=== PATIENT | female | born 1965 | race Caucasian/White ===

== ENCOUNTER 2019-05-16 09:51 | Day surgery (SDC) | payer MEDICAID ==
[2019-05-06 11:52] LABS: BASOPHILS # (AUTO) 0.1 X10'3 (0-0.2); BASOPHILS % (AUTO) 0.9 % (0-1); EOSINOPHILS # (AUTO) 0.2 X10'3 (0-0.9); LYMPHOCYTES # (AUTO) 1.8 X10'3 (1.1-4.8); LYMPHOCYTES % (AUTO) 24.7 % (21-51); MEAN CORPUSCULAR HEMOGLOBIN 28.7 PG (27.0-31.0); MEAN CORPUSCULAR HGB CONC 34.4 g/dL (33.0-36.5); MEAN CORPUSCULAR VOLUME 83.5 FL (78-98); MEAN PLATELET VOLUME 8.4 FL (7.4-10.4); MONOCYTES # (AUTO) 0.7 X10'3 (0-0.9); MONOCYTES % (AUTO) 9.3 % (2-12); NEUTROPHILS # (AUTO) 4.7 X10'3 (1.8-7.7); NEUTROPHILS % (AUTO) 63.1 % (42-75); PRE OP HEMATOCRIT 41.3 % (35.0-45.0); PRE OP HEMOGLOBIN 14.2 g/dL (12.0-16.0); PRE OP PLATELET COUNT 215 X10'3 (140-440); RED BLOOD COUNT 4.94 X10'6 (4.20-5.60); RED CELL DISTRIBUTION WIDTH 13.9 % (11.5-14.5)
[2019-05-06 12:03] LABS: PRE OP PROTIME 10.2 SECONDS (9.0-12.0)
[2019-05-06 12:06] LABS: ALBUMIN/GLOBULIN RATIO 1.1 (1.1-1.5); ALKALINE PHOSPHATASE 111 IU/L (46-116); BLOOD UREA NITROGEN 10 MG/DL (7-18); BUN/CREATININE RATIO 13.9 (6.6-38.0); CALCIUM 9.7 MG/DL (8.5-10.1); CHLORIDE 104 MMOL/L (99-107); CREATININE 0.72 MG/DL (0.40-0.90); PRE OP ALT 30 U/L (30-65); PRE OP ANION GAP 10 (8-16); PRE OP AST 20 U/L (10-37); PRE OP BILIRUB, TOTAL 0.5 MG/DL (0.0-1.0); PRE OP GLUCOSE 111 MG/DL (70-104); PRE OP POTASSIUM 3.9 MMOL/L (3.4-5.1); PRE OP SODIUM 140 MMOL/L (135-145); TOTAL CARBON DIOXIDE 25.8 MMOL/L (24-32); TOTAL PROTEIN 7.8 G/DL (6.4-8.2); eGFR 84 ML/MIN
[~2019-05-16] VITALS: Ht 165.1 cm; Wt 78.1 kg
[2019-05-16] VITALS (11 sets, daily range): BP systolic 129–155; BP diastolic 46–92
[~2019-05-16 09:51] MED LIST: ATOR10TA PO; DULO-31 PO; IBUP-1985 PO; LEVO100T PO; LIRA0.6P2 SUBCUT; LISI-600 PO; METF500T PO; MULT-269 PO; OMEP20CA11 PO; famotidine 20mg tablet PO ONE; ringers solution, lacted 1,000 ML IV SCH
[2019-05-16] MEDS ORDERED: famotidine 20mg tablet PO ONE (10:05)
[2019-05-16] MEDS ORDERED: LIDOcaine 1% (10mg/ml) 2ml vial ONE (10:09)
[2019-05-16] MEDS ORDERED: cefazolin/dext.iso 2gm/50ml 50 ML IV ONE (11:00)
[2019-05-16] MEDS ORDERED: BUPIVAcaine/PF 2.5 mg/ml (0.25%) 30ml vial ONE (12:43)
[2019-05-16] MEDS ORDERED: sevoflurane 250ml liquid IH ONE (13:05)
[2019-05-16] MEDS ORDERED: fentaNYL/PF 50MCG/1 ML 2ML syringe ONE (13:09)
[2019-05-16] MEDS ORDERED: MIDAZolam 5mg/5ml vial ONE (13:10)
[2019-05-16] MEDS ORDERED: ROPIVAcaine 0.5% (5mg/ml) 30ml vial ONE (13:48)
[2019-05-16] MEDS ORDERED: ondansetron/PF 4mg/2ml inj ONE (13:48)
[2019-05-16] MEDS ORDERED: LIDOcaine 1%/PF 5ML 10 MG/ML VIAL ONE (13:48)
[2019-05-16] MEDS ORDERED: propofol inj 20 ML IV ONE (13:48)
[2019-05-16] MEDS ORDERED: ringers solution, lacted 1,000 ML IV SCH (14:12)
[2019-05-16] MEDS ORDERED: morphine 4 MG/ML inj SYRINge IV PRN ×2 (14:15)
[2019-05-16] MEDS ORDERED: ondansetron/PF 4mg/2ml inj IV PRN (14:15)
[2019-05-16] MEDS ORDERED: meperidine/PF 25mg/ml syringe IV PRN ×3 (14:15)
[2019-05-16] MEDS ORDERED: proCHLORperazine 10 MG/2 ml inj IV PRN (14:15)
[2019-05-16] MEDS ORDERED: HYDROcodone/acetaminophen 10/325mg tab PO PRN (14:30)
--- NOTE | 2019-05-16 14:30 | NUR ---
Received from OR via BED , accompanied by Anesthesiologist DR GOLDBERG and report given by Anesthesiolgist. PATIENT WAKING UP, DENIES PAIN, V/S WNL, NEUROVASCULAR CHECKS INTACT, 20G PIV RUE , DRESSING TO LEFT SHOULDER CDI W/ SLING AND W/ COLD POWDER PACK .
--- NOTE | 2019-05-16 15:50 | NUR ---
PATIENT A&OX4, DENIES PAIN, V/S WNL, NEUROVASCULAR CHECKS INTACT, 20G PIV D/C WITH NO COMPLICATIONS OBSERVED , DRESSING TO LEFT SHOULDER CDI WITH SLING W/ COLD POWDER PACK , SCD OFF. I HAVE REVIEWED D/C INSTRUCTIONS WITH PATIENT AND FAMILY AND THEY HAVE VERBALIZED UNDERSTANDING. PATIENT D/C HOME WITH ALL BELONGINGS AND FAMILY GAVE TRANSPORT HOME.
== END 2019-05-16 15:50 | disposition home or self-care (01) ==
LOC: PAS 09:51
PROVIDERS: ATTEND Orthopaedic Surgery
DX: M75.42 Impingement syndrome of left shoulder (principal); M19.012 Primary osteoarthritis, left shoulder; M75.32 Calcific tendinitis of left shoulder; M75.52 Bursitis of left shoulder; M25.712 Osteophyte, left shoulder; I10 Essential (primary) hypertension; E11.9 Type 2 diabetes mellitus without complications; E03.9 Hypothyroidism, unspecified; K21.9 Gastro-esophageal reflux disease without esophagitis; Z79.899 Other long term (current) drug therapy; Z88.1 Allergy status to other antibiotic agents; Z88.2 Allergy status to sulfonamides; Z87.891 Personal history of nicotine dependence; Z72.89 Other problems related to lifestyle; Z88.7 Allergy status to serum and vaccine; Z79.84 Long term (current) use of oral hypoglycemic drugs; Z90.49 Acquired absence of other specified parts of digestive tract; Z79.01 Long term (current) use of anticoagulants
CPT/HCPCS: 29824; 29826; 36415; 80053; 82948; 85025; 85610; 85730; 93005; J2001; J2250; J2405; J2704; J3010; J3490; J7120; A4565; A4618; A6449; A7000; J2795

== ENCOUNTER 2022-01-05 11:24 | Emergency (ER) | payer MEDICAID ==
[~2022-01-05] VITALS: Ht 165.1 cm; Wt 76.4 kg
[~2022-01-05 11:24] MED LIST changes: -LISI-600 PO; +LISI20TA28 PO; -OMEP20CA11 PO; +OMEP20CA15 PO; -famotidine 20mg tablet PO ONE; -ringers solution, lacted 1,000 ML IV SCH
[2022-01-05 13:54] VITALS: BP 132/76
--- NOTE | 2022-01-05 14:04 | NUR ---
provider at bedside.
[2022-01-05] MEDS ORDERED: ketorolac trometh. 30mg/ml inj. IM ONE (14:20)
== END 2022-01-05 14:59 | disposition home or self-care (01) ==
LOC: ER 11:25
DX: M54.2 Cervicalgia (principal); L29.9 Pruritus, unspecified; I10 Essential (primary) hypertension; E11.9 Type 2 diabetes mellitus without complications; F12.90 Cannabis use, unspecified, uncomplicated; Z87.442 Personal history of urinary calculi; Z87.440 Personal history of urinary (tract) infections; Z90.49 Acquired absence of other specified parts of digestive tract; Z88.2 Allergy status to sulfonamides; Z88.1 Allergy status to other antibiotic agents; Z79.899 Other long term (current) drug therapy
CPT/HCPCS: 96372; 99283; J1885